=== PATIENT | male | born 1935 | race Caucasian/White ===

== ENCOUNTER 2016-12-29 11:13 | Inpatient (IN) | payer OTHER ==
--- NOTE | 2016-12-29 12:24 | PDOC ---
Attending Attestation - Resident Resident Name: Junito Jimenez - ED Attending Attestation I have performed the following: I have examined & evaluated the patient, The case was reviewed & discussed with the resident, I agree w/resident's findings & plan - HPI HPI: 12/29/16 12:43 81-year-old male, started with severe herpetic lesion in his R upper lip and face, which he said was severe, and also a rash on the back of his neck radiating to the right shoulder week ago He states that he scratched at the herpetic lesions on his face Since then he's had progressive facial redness pain and swelling since then, but denies any fevers or chills He was sent from his doctor's office today for further evaluation - Physicial Exam PE: 12/29/16 12:44 Physical exam Last Vital Signs Temp Pulse Resp BP Pulse Ox 99.1 F 106 H 16 144/78 96 12/29/16 11:21 12/29/16 12:14 12/29/16 12:14 12/29/16 12:14 12/29/16 12:14 There are herpetic lesions on the face, with excoriations and some scabbing over secondary to the patient scratching at them There is facial cellulitis extending to the lower eyelid, but no obvious septal cellulitis Extraocular movements are intact On the posterior neck there are zoster looking lesions in the right neck into the right shoulder There is no evidence of [place] Knutson syndrome heart regular lungs clear - Medical Decision Making 12/29/16 12:46 Concerned about herpes zoster and/or herpes simplex, with secondary staph infection/facial cellulitis from scratching at the areas Will panculture and check labwork Will start coverage with acyclovir, vancomycin and Unasyn Case was discussed immediately with Dr. Jasso-infectious disease 12/29/16 13:51 Laboratory Results - last 24 hr 12/29/16 12/29/16 12:30 12:30 WBC 4.5 D RBC 3.96 L Hgb 11.5 L Hct 35.0 L MCV 88.2 MCHC 32.9 RDW 13.5 Plt Count 160 MPV 8.5 D Neutrophils % 67.0 Lymphocytes % 15.1 Monocytes % 15.7 H Eosinophils % 1.1 Basophils % 1.1 Sodium Cancelled Potassium Cancelled Chloride Cancelled Carbon Dioxide Cancelled Anion Gap Cancelled BUN Cancelled Creatinine Cancelled Creat Clearance w eGFR Cancelled Random Glucose Cancelled Calcium Cancelled Total Bilirubin Cancelled AST Cancelled ALT Cancelled Alkaline Phosphatase Cancelled Total Protein Cancelled Albumin Cancelled Chemistries hemolyzed, still do not have BUN and creatinine Need to redraw everything Treat with IV Acyclovir, vancomycin and unasyn 12/29/16 15:19 Acyclovir started GFR 40, creatinine 1.6, unable to give IV contrast for CAT scan Will order CAT scan without IV contrast 12/29/16 16:[address] Alan - will admit 12/29/16 16:33 Lactic acid 2.2-patient being hydrated 12/29/16 17:00 CT scan still pending at the time of admission (CT scan without) ADMITTING Case discussed in detail with admitting physician including history, physical exam and ancillary studies. Admitting physician has assumed care for the patient, will follow all pending diagnostics and will complete the evaluation and treatment. 12/29/16 17:21 CT scan as read by me Large amount of soft tissue swelling, CT scan is done without IV contrast, no definite acute collection is seen pre-septal swelling seen Laboratory Results - last 24 hr 12/29/16 12/29/16 12/29/16 12:30 12:30 12:30 WBC 4.5 D RBC 3.96 L Hgb 11.5 L Hct 35.0 L MCV 88.2 MCHC 32.9 RDW 13.5 Plt Count 160 MPV 8.5 D Neutrophils % 67.0 Lymphocytes % 15.1 Monocytes % 15.7 H Eosinophils % 1.1 Basophils % 1.1 Sodium Cancelled Potassium Cancelled Chloride Cancelled Carbon Dioxide Cancelled Anion Gap Cancelled BUN Cancelled Creatinine Cancelled Creat Clearance w eGFR Cancelled Random Glucose Cancelled Lactic Acid 2.215 H* Calcium Cancelled Total Bilirubin Cancelled AST Cancelled ALT Cancelled Alkaline Phosphatase Cancelled Total Protein Cancelled Albumin Cancelled 12/29/16 14:00 WBC RBC Hgb Hct MCV MCHC RDW Plt Count MPV Neutrophils % Lymphocytes % Monocytes % Eosinophils % Basophils % Sodium 141 Potassium 5.4 H Chloride 107 Carbon Dioxide 27 Anion Gap 7 L BUN 32 H Creatinine 1.6 H Creat Clearance w eGFR 41.69 Random Glucose 93 Lactic Acid Calcium 8.3 L Total Bilirubin 0.5 AST 18 ALT 20 Alkaline Phosphatase 82 Total Protein 7.0 Albumin 3.7 12/29/16 21:27 Addendum - CT reading by radiology EXAM#: TYPE/EXAM: RESULT: [id number] CT/FACIAL BONES CT W/O CONTRAST Facial cellulitis CT scan of the facial bones/neck without intravenous contrast. A noncontrast CT scan of the neck was performed with axial images obtained from the midbrain down to the thoracic inlet. Coronal and sagittal reconstruction images were obtained. There is moderate right periorbital and preseptal soft tissue swelling extending down to the right cheek and along lateral aspect of the right face with subcutaneous edema. Both orbits appear intact. No gross fracture is identified. Minimal mucosal thickening in the ethmoid air cells and maxillary antra with an approximately 1 cm retention cyst versus polyp in the left maxillary antrum , laterally. Both TM joints are intact. Prominent anterior osteophytes from C2 down to T2 level with fusion on the right. There is also suggestion of fusion of C4-C6 vertebral bodies on the right. No jumped facets are identified. No prevertebral soft tissue swelling is seen. No enlarged lymph nodes are identified. There is a 1.1 cm heterogeneous calcific density seen along the inferior margin of the right parotid gland that may represent a calcified lymph node. The airway is patent and symmetric without gross narrowing Lung windows at the thoracic inlet appear unremarkable IMPRESSION: See discussion above Moderate right periorbital and preseptal soft tissue swelling extending superiorly to the right orbital rim and inferiorly over the right cheek and lateral aspect of the face without evidence of fluid collection/abscess. Both orbits are intact. Both eye globes are intact without evidence of retrobulbar abnormal attenuation. Reported By: Abhilash Mcclellan MD 12/29/16 1333 Discharge Disposition - Diagnosis Facial cellulitis, Herpes Zoster Qualifiers: Herpes zoster complications: unspecified herpes zoster complication Qualified Code(s): B02.8 - Zoster with other complications - Discharge Dispostion Last Admission D/C Date: 05/15/10 Admit: Yes
[2016-12-29] MEDS ORDERED: SODIUM CHLORIDE 1,000 ML IV STA ×2 (12:32→15:34)
--- NOTE | 2016-12-29 12:39 | PDOC ---
History of Present Illness - General Chief Complaint: Edema Stated Complaint: FACE INJURY, PCP SENT Time Seen by Provider: 12/29/16 12:21 History Source: Patient Exam Limitations: No Limitations - History of Present Illness Initial Comments: 12/29/16 12:39 81 yo M with significant pmhx of HTN presents with one week history of worsening facial swelling. He states that one week prior he has the "worst cold sore" of his life. That then went away and he developed vesicles on his face which he popped. Then face began to lizzy and swell. As well as the face a dermatomal rash developed on his neck. He went to see primary doc and was given script for antiviral and antibiotics but when his symptoms worsened was told to come to ED.No history of shingles vaccine. He is now complaining of facial pain and swelling that is constant. No loss of vision or pain with movement of eyes. Hearing is intact. Denies fevers, chills, MEDRANO, CP, SOB, or palpitations. Timing/Duration: 1 week Past History - Travel Traveled outside of the country in the last 30 days: No Close contact w/someone who was outside of country & ill: No - Past Medical History Allergies/Adverse Reactions: Allergies Allergy/AdvReac Type Severity Reaction Status Date / Time No Known Allergies Allergy Verified 12/29/16 11:25 Home Medications: Ambulatory Orders Amlodipine Besylate 5 mg PO DAILY 12/29/16 Cephalexin [Keflex] 500 mg PO TID 12/29/16 Furosemide [Lasix -] 40 mg PO DAILY 12/29/16 Losartan Potassium 100 mg PO DAILY 12/29/16 Potassium Chloride [K-Tab ER] 10 meq PO DAILY 12/29/16 Tamsulosin HCl [Flomax] 0.4 mg PO DAILY 12/29/16 Valacyclovir HCl [Valtrex] 1,000 mg PO TID 12/29/16 HTN: Yes - Psycho/Social/Smoking Cessation Hx Suicidal Ideation: No Smoking History: Former smoker Have you smoked in the past 12 months: No Information on smoking cessation initiated: No Review of Systems - Review of Systems Able to Perform ROS?: Yes Is the patient limited Kazakh proficient: No *Physical Exam - Vital Signs Last Vital Signs Temp Pulse Resp BP Pulse Ox 99.1 F 106 H 16 144/78 96 12/29/16 11:21 12/29/16 12:14 12/29/16 12:14 12/29/16 12:14 12/29/16 12:14 ED Treatment Course - LABORATORY CBC & Chemistry Diagram: 12/29/16 12:30 12/29/16 14:00 - RADIOLOGY Radiology Studies Ordered: Category Date Time Status FACIAL BONES CT WITH CONTRAST [CT] Stat CT Scan 12/29/16 12:31 Ordered Medical Decision Making - Medical Decision Making 12/29/16 12:45 A:81 yo M with significant pmhx of HTN presents with one week history of worsening facial swelling. Most likely herpetic with secondary cellulitis. P: * WIll send CBC, CMP, UA, Lactic acid, blood cultures. * Will get facial soft tissue CT r/o abscess * WIll start coverage with Acyclovir, Vanco and Zosyn. * ID - Dr. Jasso consulted. *DC/Admit/Observation/Transfer Diagnosis at time of Disposition: Facial cellulitis, Herpes Addendum entered and electronically signed by Junito Jimenez RES 12/31/16 11: 13: Physical Exam Vital Sings: Vital Signs Temperature 98.1 F 12/31/16 08:20 Pulse Rate 84 12/31/16 08:20 Respiratory Rate 19 12/31/16 08:20 Blood Pressure 150/91 12/31/16 08:20 O2 Sat by Pulse Oximetry (%) 97 12/30/16 09:00 Constitutional: Yes: Calm Eyes: Yes: EOM Intact, PERRL (facial cellulits of right side of face and eyelid) HENT: Yes: Atraumatic, Normocephalic Neck: Yes: Other (vesicular rash seen on posterior right neck in dermatomal pattern ) Cardiovascular: Yes: Regular Rate and Rhythm. No: JVD, Murmur Respiratory: Yes: Regular, CTA Bilaterally Gastrointestinal: Yes: Normal Bowel Sounds, Soft. No: Tenderness Extremities: No: Calf Tenderness Peripheral Pulses WNL: Yes Integumentary: Yes: Rash (vesicular rash seen on posterior right night. ) Neurological: Yes: Alert, Oriented, Cran Nerves II-XII Intact Psychiatric: Yes: Alert, Oriented Labs: CBC, BMP 12/29/16 12:30 12/29/16 14:00
[2016-12-29 13:03] LABS: BASOPHIL 1.1 % (0-2.0); EOSINOPHIL 1.1 % (0-4.5); MCHC 32.9 g/dl (32.0-35.9); MEAN CELL VOLUME 88.2 fl (80-96); MEAN PLT VOLUME 8.5 fl (7.5-11.1); PLATELET COUNT 160 K/MM3 (134-434); RDW 13.5 % (11.9-15.9); WHITE BLOOD COUNT 4.5 K/mm3 (4.0-10.0)
[2016-12-29] MEDS ORDERED: ACETAMINOPHEN 500 MG TABLET (FP) PO ONE (14:35)
[2016-12-29 14:45] LABS: ALBUMIN 3.7 g/dl (3.4-5.0); CALCIUM 8.3 mg/dL (8.5-10.1)
[2016-12-29 14:48] LABS: BILIRUBIN,TOTAL 0.5 mg/dL (0.2-1.0); COCKROFT - GAULT 49.94; CREATININE 1.6 mg/dL (0.7-1.3)
[2016-12-29] MEDS ORDERED: ACYCLOVIR INJECTION 1,000 MG in DEXTROSE 5%-WATER - 100 ML IVPB ONE (14:57)
[2016-12-29] MEDS ORDERED: ACYCLOVIR INJECTION 1,000 MG in DEXTROSE 5%-WATER - 250 ML IVPB ONE (15:30)
[2016-12-29] MEDS ORDERED: AMPICILLIN NA/SULBACTAM NA 3 GM in SODIUM CHLORIDE 100 ML IVPB ONE (15:53)
[2016-12-29] MEDS ORDERED: VANCOMYCIN 1,250 MG in DEXTROSE 5%-WATER - 250 ML IVPB ONE (15:53)
[2016-12-29] MEDS ORDERED: VANCOMYCIN 1 GRAM (PRE-DOCKED) 250 ML IVPB ONE (16:13)
[2016-12-29 18:35] VITALS: BMI 35.0
[2016-12-30] MEDS: CLINDAMYCIN 300 MG PREMIX IVPB 50 ML IVPB SCH ×3 (01:53→17:10)
[2016-12-30] MEDS: ACYCLOVIR INJECTION 500 MG in DEXTROSE 5%-WATER - 100 ML IVPB SCH ×3 (01:54→17:11)
[2016-12-30] MEDS: AMPICILLIN NA/SULBACTAM NA 3 GM in SODIUM CHLORIDE 100 ML IVPB SCH ×3 (01:54→17:11)
[2016-12-30] MEDS ORDERED: SODIUM CHLORIDE 0.45% 1,000 ML IV SCH (02:00)
[2016-12-30 08:22] LABS: BASOPHIL 1.1 % (0-2.0); EOSINOPHIL 1.7 % (0-4.5); MCH 28.8 pg (25.7-33.7); MCHC 32.9 g/dl (32.0-35.9); MEAN CELL VOLUME 87.6 fl (80-96); MEAN PLT VOLUME 7.8 fl (7.5-11.1); NEUTROPHILS 58.5 % (42.8-82.8); PLATELET COUNT 137 K/MM3 (134-434); RDW 13.3 % (11.9-15.9); WHITE BLOOD COUNT 3.6 K/mm3 (4.0-10.0)
--- NOTE | 2016-12-30 08:57 | HP ---
Admitting History and Physical - Primary Care Physician PCP: Tereza Sal - Admission Chief Complaint: facial rash/swelling History of Present Illness: developed cold sore over his upper lip 6 weeks ago, went away, but one to two weeks ago developed blisters over his face, he tried to squeeze them, redness developed -started keflex and valtrex on Wednesday, but did not improve so he was sent to er. History Source: Patient Limitations to Obtaining History: No Limitations - Past Medical History Cardiovascular: Yes: HTN - Past Surgical History Past Surgical History: Yes: Cataract Removal (bilateral), Joint Replacement ( left hip replacement bilateral knee replacement) - Smoking History Smoking history: Former smoker Have you smoked in the past 12 months: No If you are a former smoker, when did you quit?: 11 YRS AGO - Alcohol/Substance Use Hx Alcohol Use: No - Social History ADL: Independent Home Medications - Allergies Allergies/Adverse Reactions: Allergies Allergy/AdvReac Type Severity Reaction Status Date / Time No Known Allergies Allergy Verified 12/29/16 11:25 - Home Medications Home Medications: Ambulatory Orders Amlodipine Besylate 5 mg PO DAILY 12/29/16 Cephalexin [Keflex] 500 mg PO TID 12/29/16 Furosemide [Lasix -] 40 mg PO DAILY 12/29/16 Losartan Potassium 100 mg PO DAILY 12/29/16 Potassium Chloride [K-Tab ER] 10 meq PO DAILY 12/29/16 Tamsulosin HCl [Flomax] 0.4 mg PO DAILY 12/29/16 Valacyclovir HCl [Valtrex] 1,000 mg PO TID 12/29/16 Family Disease History - Family Disease History Family History: Unremarkable Review of Systems - Review of Systems Constitutional: denies: Chills, Diaphoresis, Fever, Lethargy Eyes: reports: No Symptoms HENT: reports: No Symptoms Neck: reports: No Symptoms Cardiovascular: reports: No Symptoms Respiratory: reports: No Symptoms Gastrointestinal: reports: No Symptoms Genitourinary: reports: No Symptoms Physical Examination Vital Signs: Vital Signs Temperature 97.9 F 12/30/16 06:00 Pulse Rate 99 H 12/30/16 06:00 Respiratory Rate 18 12/30/16 06:00 Blood Pressure 145/72 12/30/16 06:00 O2 Sat by Pulse Oximetry (%) 97 12/29/16 21:00 Constitutional: Yes: No Distress, Calm Eyes: Yes: Conjunctiva Clear HENT: Yes: Atraumatic, Normocephalic Neck: Yes: Supple, Trachea Midline Cardiovascular: Yes: Regular Rate and Rhythm Respiratory: Yes: CTA Bilaterally Gastrointestinal: Yes: Normal Bowel Sounds, Soft Edema: LLE: Trace, RLE: Trace Peripheral Pulses WNL: Yes Integumentary: Yes: Other (vesicular rash over right posterior cervical and deltoid area with surroounding erythema shallow ulcers over right face over maxilla and significant lower eyelid swelling) ...Motor Strength: WNL Psychiatric: Yes: WNL Labs: CBC, BMP 12/30/16 07:50 Laboratory Results - last 24 hr 12/29/16 12/29/16 12/29/16 12:30 12:30 12:30 WBC 4.5 D RBC 3.96 L Hgb 11.5 L Hct 35.0 L MCV 88.2 MCHC 32.9 RDW 13.5 Plt Count 160 MPV 8.5 D Neutrophils % 67.0 Lymphocytes % 15.1 Monocytes % 15.7 H Eosinophils % 1.1 Basophils % 1.1 Sodium Cancelled Potassium Cancelled Chloride Cancelled Carbon Dioxide Cancelled Anion Gap Cancelled BUN Cancelled Creatinine Cancelled Creat Clearance w eGFR Cancelled Random Glucose Cancelled Lactic Acid 2.215 H* Calcium Cancelled Total Bilirubin Cancelled AST Cancelled ALT Cancelled Alkaline Phosphatase Cancelled Total Protein Cancelled Albumin Cancelled 12/29/16 12/30/16 14:00 07:50 WBC 3.6 L RBC 3.59 L Hgb 10.3 L D Hct 31.4 L MCV 87.6 MCHC 32.9 RDW 13.3 Plt Count 137 MPV 7.8 Neutrophils % 58.5 Lymphocytes % 19.8 D Monocytes % 18.9 H Eosinophils % 1.7 Basophils % 1.1 Sodium 141 Potassium 5.4 H Chloride 107 Carbon Dioxide 27 Anion Gap 7 L BUN 32 H Creatinine 1.6 H Creat Clearance w eGFR 41.69 Random Glucose 93 Lactic Acid Calcium 8.3 L Total Bilirubin 0.5 AST 18 ALT 20 Alkaline Phosphatase 82 Total Protein 7.0 Albumin 3.7 Imaging - Results Cat Scan: Report Reviewed Problem List - Problems (1) Facial cellulitis Code(s): L03.211 - CELLULITIS OF FACE (2) Zoster Code(s): B02.9 - ZOSTER WITHOUT COMPLICATIONS Qualifiers: Herpes zoster complications: unspecified herpes zoster complication Qualified Code(s): B02.8 - Zoster with other complications (3) Hypertension Code(s): I10 - ESSENTIAL (PRIMARY) HYPERTENSION Qualifiers: Hypertension type: essential hypertension Qualified Code(s): I10 - Essential (primary) hypertension Assessment/Plan iv abx, iv antiviral ID f/up requested also will request ophthalmology eval r/o ocular involvement
[2016-12-30 08:58] LABS: ALBUMIN 3.5 g/dl (3.4-5.0); CALCIUM 8.5 mg/dL (8.5-10.1)
[2016-12-30 09:02] LABS: BILIRUBIN,TOTAL 0.6 mg/dL (0.2-1.0); CREATININE 1.3 mg/dL (0.7-1.3); TOT PROT 6.9 g/dl (6.4-8.2)
[2016-12-30] MEDS ORDERED: PT OWN MED DRAWER 7, Y5N ONE ×2 (10:41→17:04)
[2016-12-30] MEDS: TAMSULOSIN HCL 0.4 MG CAP.ER.24H (FP) PO SCH (10:44)
[2016-12-30] MEDS: amLODIPine BESYLATE 5 MG TABLET (FP) PO SCH (10:45)
[2016-12-30] MEDS: POTASSIUM CHLORIDE TABS 10 MEQ TABLET.ER (FP) PO SCH (10:45)
[2016-12-30] MEDS: ENOXAPARIN NA (PORCINE) 40 MG/0.4 ML DISP.SYRIN SQ SCH ×2 (10:45→10:54)
[2016-12-30] MEDS: FUROSEMIDE 40 MG TABLET (FP) PO SCH (10:45)
[2016-12-30] MEDS: LOSARTAN POTASSIUM 50 MG TABLET (FP) PO SCH (10:45)
--- NOTE | 2016-12-30 10:58 | CONSULT ---
Consult Consult Specialty:: infectious diseases Reason for Consultation:: facial swelling - History of Present Illness Chief Complaint: pain and swelling over the rt side of the face with herpes zoster and extending to the nape of the neck at back History of Present Illness: 81 yo M with significant pmhx of HTN presents with one week history of worsening facial swelling. patient had cold sore prior to this coming on which went away and then after a week or so the swelling of the face started He developed vesicle on the face which he popped . patient then found spread of the vesicles also of not on examining the patient it appears the eye to be red and there is crusting on the nose patients feels that he is starting to get better as his lip swelling has gone down - History Source History Provided By: Patient Limitations to Obtaining History: No Limitations - Past Medical History Cardio/Vascular: Yes: HTN - Past Surgical History Past Surgical History: Yes: Cataract Removal (bilateral), Joint Replacement ( left hip replacement bilateral knee replacement) - Alcohol/Substance Use Hx Alcohol Use: No - Smoking History Smoking history: Former smoker Have you smoked in the past 12 months: No If you are a former smoker, when did you quit?: 11 YRS AGO - Social History ADL: Independent Home Medications - Allergies Allergies/Adverse Reactions: Allergies Allergy/AdvReac Type Severity Reaction Status Date / Time No Known Allergies Allergy Verified 12/29/16 11:25 - Home Medications Home Medications: Ambulatory Orders Amlodipine Besylate 5 mg PO DAILY 12/29/16 Cephalexin [Keflex] 500 mg PO TID 12/29/16 Furosemide [Lasix -] 40 mg PO DAILY 12/29/16 Losartan Potassium 100 mg PO DAILY 12/29/16 Potassium Chloride [K-Tab ER] 10 meq PO DAILY 12/29/16 Tamsulosin HCl [Flomax] 0.4 mg PO DAILY 12/29/16 Valacyclovir HCl [Valtrex] 1,000 mg PO TID 12/29/16 Review of Systems - Review of Systems Constitutional: reports: No Symptoms Eyes: reports: Other (redness) HENT: reports: Other (swelling erythema of the face) Neck: reports: Other (herpes on the neck extending posteriorly and crossing midline) Cardiovascular: reports: No Symptoms Respiratory: reports: No Symptoms Gastrointestinal: reports: No Symptoms Genitourinary: reports: No Symptoms Musculoskeletal: reports: No Symptoms Integumentary: reports: Change in Color, Rash Neurological: reports: No Symptoms Endocrine: reports: No Symptoms Hematology/Lymphatic: reports: No Symptoms Psychiatric: reports: No Symptoms Physical Exam Vital Signs: Vital Signs Temperature 97.9 F 12/30/16 06:00 Pulse Rate 99 H 12/30/16 06:00 Respiratory Rate 18 12/30/16 06:00 Blood Pressure 145/72 12/30/16 06:00 O2 Sat by Pulse Oximetry (%) 97 12/29/16 21:00 Constitutional: Yes: Well Nourished, Mild Distress Eyes: Yes: Tearing, Other HENT: Yes: Atraumatic, Normocephalic, Other (patient has herpetic rash on the neck) Neck: Yes: Supple, Other Cardiovascular: Yes: S1, S2 Respiratory: Yes: Regular, CTA Bilaterally Gastrointestinal: Yes: Normal Bowel Sounds, Soft Musculoskeletal: Yes: WNL, Other Extremities: Yes: WNL Integumentary: Yes: Rash, Other Neurological: Yes: Alert, Oriented Psychiatric: Yes: Alert, Oriented Labs: CBC, BMP 12/30/16 07:50 12/30/16 07:50 Imaging - Results Cat Scan: Report Reviewed, Image Reviewed Assessment/Plan - Problems (1) Facial cellulitis Code(s): L03.211 - CELLULITIS OF FACE (2) Zoster Code(s): B02.9 - ZOSTER WITHOUT COMPLICATIONS Qualifiers: Herpes zoster complications: unspecified herpes zoster complication Qualified Code(s): B02.8 - Zoster with other complications (3) Hypertension Code(s): I10 - ESSENTIAL (PRIMARY) HYPERTENSION Qualifiers: Hypertension type: essential hypertension Qualified Code(s): I10 - Essential (primary) hypertension plan patient started on iv abx on iv acylovir opthalm evaluation close monitoring of renal functions
[2016-12-30] MEDS: SODIUM CHLORIDE 1,000 ML IV SCH (13:00)
[2016-12-31] MEDS ORDERED: PT OWN MED DRAWER 7, Y5N ONE ×4 (01:10→21:02)
[2016-12-31] MEDS: CLINDAMYCIN 300 MG PREMIX IVPB 50 ML IVPB SCH ×3 (01:29→17:06)
[2016-12-31] MEDS: AMPICILLIN NA/SULBACTAM NA 3 GM in SODIUM CHLORIDE 100 ML IVPB SCH ×3 (02:20→17:25)
[2016-12-31] MEDS: ACYCLOVIR INJECTION 500 MG in DEXTROSE 5%-WATER - 100 ML IVPB SCH ×3 (02:59→18:25)
[2016-12-31] MEDS: ACETAMINOPHEN 325 MG TABLET (FP) PO PRN (05:40)
[2016-12-31 07:56] LABS: EOSINOPHIL 2.6 % (0-4.5); MCH 29.2 pg (25.7-33.7); MCHC 33.4 g/dl (32.0-35.9); MEAN CELL VOLUME 87.4 fl (80-96); MEAN PLT VOLUME 8.1 fl (7.5-11.1); NEUTROPHILS 50.6 % (42.8-82.8); PLATELET COUNT 127 K/MM3 (134-434); RDW 13.6 % (11.9-15.9); WHITE BLOOD COUNT 4.1 K/mm3 (4.0-10.0)
[2016-12-31 08:37] LABS: ALBUMIN 3.4 g/dl (3.4-5.0); BILIRUBIN,TOTAL 0.5 mg/dL (0.2-1.0); CALCIUM 8.4 mg/dL (8.5-10.1); COCKROFT - GAULT 57.6; CREATININE 1.4 mg/dL (0.7-1.3); TOT PROT 6.6 g/dl (6.4-8.2)
[2016-12-31] MEDS: TAMSULOSIN HCL 0.4 MG CAP.ER.24H (FP) PO SCH (08:41)
--- NOTE | 2016-12-31 08:41 | CONSULT ---
Consult - text type - Consultation Consultation Note: Ophthalmology consult: 81 year old male admitted with right facial swelling and rash x 2 weeks. He reports slight redness od and irritation of right lower lid, vision a bit blurry OD. PMH: HTN POCH: s/p ce/pciol ou (Dr. Caceres), diplopia resolved with prism glasses Meds: amlodipine, lasix, losartan potassium, flomax, keflex, valtrex All: NKDA Social: former smoker FOCHx: non-contribuory gtts: none [facility] with readers near vision: 20/30 od , 20/25 os. TA 16 OU, Rotations full, p miotic, no apd, no proptosis, no decreased v1 sensation ou PLE: lll vescicles and erythema right lower lid temporally and nasally OD, 2+ edema and 2+ erythema right maxillary region with vesicles and ulcerated lesions sc 1+ injection temporal od, k clear ou , ac formed ou, I wnl ou, L pciol OU DFE: c:d 0.4 m/v/p wnl, pvd ou Impression: Herpes Zoster V2 distribution, but involving right lower lid. No intraocular involvement/ No V1 involvement. Would continue management with keflex and valtrex and add bacitracin opthalmic ointment to right lower lid QID and may also place on right facial lesions. Artificial tears 1 drop od BID F/u with Dr. Vince Caceres as outpatient in 1 week Thank You for this conult Roseline Love MD
[2016-12-31] MEDS: LOSARTAN POTASSIUM 50 MG TABLET (FP) PO SCH (09:15)
[2016-12-31] MEDS: POTASSIUM CHLORIDE TABS 10 MEQ TABLET.ER (FP) PO SCH (09:16)
[2016-12-31] MEDS: FUROSEMIDE 40 MG TABLET (FP) PO SCH (09:16)
[2016-12-31] MEDS: amLODIPine BESYLATE 5 MG TABLET (FP) PO SCH (09:17)
[2016-12-31] MEDS: ENOXAPARIN NA (PORCINE) 40 MG/0.4 ML DISP.SYRIN SQ SCH (09:17)
--- NOTE | 2016-12-31 10:38 | PN ---
Progress Note (short form) - Note Progress Note: overall better, no new complains CBC, BMP 12/31/16 06:30 12/31/16 06:30 Vital Signs Period Temp Pulse Resp BP Sys/Magana Pulse Ox Last 24 Hr 98.1 F-99.3 F 84-98 16-20 150-156/85-91 S1S2 RRR Lungs cta +chronic edema facial erythema better, less swelling around eye shingles lesions slightly better. Imp facial cellulitis over zoster infection Plan iv antiviral and antibiotic as per ID dc planning once cleared by Problem List - Problems (1) Facial cellulitis Code(s): L03.211 - CELLULITIS OF FACE (2) Zoster Code(s): B02.9 - ZOSTER WITHOUT COMPLICATIONS Qualifiers: Herpes zoster complications: unspecified herpes zoster complication Qualified Code(s): B02.8 - Zoster with other complications (3) Hypertension Code(s): I10 - ESSENTIAL (PRIMARY) HYPERTENSION Qualifiers: Hypertension type: essential hypertension Qualified Code(s): I10 - Essential (primary) hypertension
--- NOTE | 2016-12-31 13:00 | PN ---
Progress Note, Physician History of Present Illness: patient doing well swelling improving vesicles drying up - Current Medication List Current Medications: Active Medications Acetaminophen (Tylenol -) 650 mg PO Q6H PRN PRN Reason: FEVER OR PAIN Last Admin: 12/31/16 05:40 Dose: 650 mg Amlodipine Besylate (Norvasc -) 5 mg PO DAILY [facility] Last Admin: 12/31/16 09:17 Dose: 5 mg Artificial Tears (Artificial Tears) 1 drop OD BID [facility] Bacitracin (Bacitracin Ophthalmic Oint -) 1 applic OD QID [facility] Enoxaparin Sodium (Lovenox -) 40 mg SQ DAILY [facility] Last Admin: 12/31/16 09:17 Dose: 40 mg Furosemide (Lasix -) 40 mg PO DAILY [facility] Last Admin: 12/31/16 09:16 Dose: 40 mg Ampicillin Sodium/Sulbactam (Sodium 3 gm/ Sodium Chloride) 100 mls @ 200 mls/ hr IVPB Q8H-IV [facility] Last Admin: 12/31/16 09:17 Dose: 200 mls/hr Clindamycin Phosphate (Cleocin 300 Mg Premix Ivpb) 50 mls @ 104 mls/hr IVPB Q8H -IV [facility] Last Admin: 12/31/16 09:16 Dose: 104 mls/hr Acyclovir 500 mg/ Dextrose 110 mls @ 110 mls/hr IVPB Q8H-IV [facility] Last Admin: 12/31/16 10:25 Dose: 110 mls/hr Sodium Chloride (Normal Saline -) 1,000 mls @ 50 mls/hr IV ASDIR [facility] Last Admin: 12/30/16 13:00 Dose: 50 mls/hr Losartan Potassium (Cozaar -) 100 mg PO DAILY [facility] Last Admin: 12/31/16 09:15 Dose: 100 mg Potassium Chloride (K-Dur -) 10 meq PO DAILY [facility] Last Admin: 12/31/16 09:16 Dose: 10 meq Tamsulosin HCl (Flomax -) 0.4 mg PO DAILY@0830 [facility] Last Admin: 12/31/16 08:41 Dose: 0.4 mg - Objective Vital Signs: Vital Signs Temperature 98.1 F 12/31/16 08:20 Pulse Rate 84 12/31/16 08:20 Respiratory Rate 19 12/31/16 08:20 Blood Pressure 150/91 12/31/16 08:20 O2 Sat by Pulse Oximetry (%) 97 12/30/16 09:00 Constitutional: Yes: No Distress, Calm Eyes: Yes: Tearing, Other (scabbing starting) Neck: Yes: Supple, Trachea Midline Respiratory: Yes: Regular, CTA Bilaterally Gastrointestinal: Yes: Normal Bowel Sounds, Soft Musculoskeletal: Yes: WNL Extremities: Yes: WNL Integumentary: Yes: Erythema (facial improving) Neurological: Yes: Alert, Oriented Psychiatric: Yes: Alert, Oriented Labs: CBC, BMP 12/31/16 06:30 12/31/16 06:30 Assessment/Plan - Problems (1) Facial cellulitis Code(s): L03.211 - CELLULITIS OF FACE (2) Zoster Code(s): B02.9 - ZOSTER WITHOUT COMPLICATIONS Qualifiers: Herpes zoster complications: unspecified herpes zoster complication Qualified Code(s): B02.8 - Zoster with other complications (3) Hypertension Code(s): I10 - ESSENTIAL (PRIMARY) HYPERTENSION Qualifiers: Hypertension type: essential hypertension Qualified Code(s): I10 - Essential (primary) hypertension evaluated by opthalm plan continue iv abx continue iv acylovir rest ct current mgmt rest as per the primary team
[2016-12-31] MEDS: ARTIFICIAL TEARS (POLYVINYL ALCOHOL 1.4%) OPTH DROPS OD SCH ×2 (13:02→22:02)
[2016-12-31] MEDS: BACITRACIN 3.5 GM OPTHALMIC OINT TUBE OD SCH ×3 (13:21→22:02)
[2016-12-31] MEDS: SODIUM CHLORIDE 1,000 ML IV SCH (18:25)
[2017-01-01] MEDS: CLINDAMYCIN 300 MG PREMIX IVPB 50 ML IVPB SCH ×3 (01:11→17:05)
[2017-01-01] MEDS: AMPICILLIN NA/SULBACTAM NA 3 GM in SODIUM CHLORIDE 100 ML IVPB SCH ×3 (01:55→17:30)
[2017-01-01] MEDS: ACYCLOVIR INJECTION 500 MG in DEXTROSE 5%-WATER - 100 ML IVPB SCH ×3 (02:28→18:31)
[2017-01-01] MEDS: ACETAMINOPHEN 325 MG TABLET (FP) PO PRN ×2 (02:34→17:38)
[2017-01-01] MEDS: TAMSULOSIN HCL 0.4 MG CAP.ER.24H (FP) PO SCH (08:18)
--- NOTE | 2017-01-01 08:38 | PN ---
Progress Note (short form) - Note Progress Note: overall better, no new complains Vital Signs Period Temp Pulse Resp BP Sys/Magana Pulse Ox Last 24 Hr 97.9 F-99.2 F 84-90 20-23 139-176/75-92 S1S2 RRR Lungs cta +chronic edema facial erythema better, less induration shingles lesions slightly better, drying up. Imp facial cellulitis over zoster infection Plan iv antiviral and antibiotic as per ID increase norvasc to 10 mg daily Problem List - Problems (1) Facial cellulitis Code(s): L03.211 - CELLULITIS OF FACE (2) Zoster Code(s): B02.9 - ZOSTER WITHOUT COMPLICATIONS Qualifiers: Herpes zoster complications: unspecified herpes zoster complication Qualified Code(s): B02.8 - Zoster with other complications (3) Hypertension Code(s): I10 - ESSENTIAL (PRIMARY) HYPERTENSION Qualifiers: Hypertension type: essential hypertension Qualified Code(s): I10 - Essential (primary) hypertension
[2017-01-01] MEDS ORDERED: PT OWN MED DRAWER 7, Y5N ONE ×2 (09:03→17:02)
[2017-01-01] MEDS: LOSARTAN POTASSIUM 50 MG TABLET (FP) PO SCH (09:08)
[2017-01-01] MEDS: POTASSIUM CHLORIDE TABS 10 MEQ TABLET.ER (FP) PO SCH (09:08)
[2017-01-01] MEDS: amLODIPine BESYLATE 10 MG TABLET (FP) PO SCH (09:09)
[2017-01-01] MEDS: FUROSEMIDE 40 MG TABLET (FP) PO SCH (09:09)
[2017-01-01] MEDS: ARTIFICIAL TEARS (POLYVINYL ALCOHOL 1.4%) OPTH DROPS OD SCH ×2 (09:09→22:45)
[2017-01-01] MEDS: ENOXAPARIN NA (PORCINE) 40 MG/0.4 ML DISP.SYRIN SQ SCH (09:10)
[2017-01-01] MEDS: BACITRACIN 3.5 GM OPTHALMIC OINT TUBE OD SCH ×4 (09:10→22:45)
--- NOTE | 2017-01-01 13:56 | PN ---
Progress Note, Physician History of Present Illness: patient stable no new events - Current Medication List Current Medications: Active Medications Acetaminophen (Tylenol -) 650 mg PO Q6H PRN PRN Reason: FEVER OR PAIN Last Admin: 01/01/17 02:34 Dose: 650 mg Amlodipine Besylate (Norvasc -) 10 mg PO DAILY [facility] Last Admin: 01/01/17 09:09 Dose: 10 mg Artificial Tears (Artificial Tears) 1 drop OD BID [facility] Last Admin: 01/01/17 09:09 Dose: 1 drop Bacitracin (Bacitracin Ophthalmic Oint -) 1 applic OD QID [facility] Last Admin: 01/01/17 13:30 Dose: 1 applic Enoxaparin Sodium (Lovenox -) 40 mg SQ DAILY [facility] Last Admin: 01/01/17 09:10 Dose: 40 mg Furosemide (Lasix -) 40 mg PO DAILY [facility] Last Admin: 01/01/17 09:09 Dose: 40 mg Ampicillin Sodium/Sulbactam (Sodium 3 gm/ Sodium Chloride) 100 mls @ 200 mls/ hr IVPB Q8H-IV [facility] Last Admin: 01/01/17 09:51 Dose: 200 mls/hr Clindamycin Phosphate (Cleocin 300 Mg Premix Ivpb) 50 mls @ 104 mls/hr IVPB Q8H -IV [facility] Last Admin: 01/01/17 09:09 Dose: 104 mls/hr Acyclovir 500 mg/ Dextrose 110 mls @ 110 mls/hr IVPB Q8H-IV [facility] Last Admin: 01/01/17 10:24 Dose: 110 mls/hr Sodium Chloride (Normal Saline -) 1,000 mls @ 50 mls/hr IV ASDIR [facility] Last Admin: 12/31/16 18:25 Dose: 50 mls/hr Losartan Potassium (Cozaar -) 100 mg PO DAILY [facility] Last Admin: 01/01/17 09:08 Dose: 100 mg Potassium Chloride (K-Dur -) 10 meq PO DAILY [facility] Last Admin: 01/01/17 09:08 Dose: 10 meq Tamsulosin HCl (Flomax -) 0.4 mg PO DAILY@0830 [facility] Last Admin: 01/01/17 08:18 Dose: 0.4 mg - Objective Vital Signs: Vital Signs Temperature 98.1 F 01/01/17 07:55 Pulse Rate 84 01/01/17 07:55 Respiratory Rate 23 01/01/17 07:55 Blood Pressure 176/92 01/01/17 07:55 O2 Sat by Pulse Oximetry (%) 97 12/30/16 09:00 Constitutional: Yes: No Distress, Calm Cardiovascular: Yes: S1, S2 Respiratory: Yes: Regular, CTA Bilaterally Gastrointestinal: Yes: Normal Bowel Sounds, Soft Musculoskeletal: Yes: Other Extremities: Yes: Other Neurological: Yes: Alert, Oriented Psychiatric: Yes: Alert, Oriented Labs: CBC, BMP 12/31/16 06:30 12/31/16 06:30 Assessment/Plan - Problems (1) Facial cellulitis Code(s): L03.211 - CELLULITIS OF FACE (2) Zoster Code(s): B02.9 - ZOSTER WITHOUT COMPLICATIONS Qualifiers: Herpes zoster complications: unspecified herpes zoster complication Qualified Code(s): B02.8 - Zoster with other complications (3) Hypertension Code(s): I10 - ESSENTIAL (PRIMARY) HYPERTENSION Qualifiers: Hypertension type: essential hypertension Qualified Code(s): I10 - Essential (primary) hypertension plan continue iv abx continue iv acylovir rest ct current mgmt rest as per the primary team patient improving
[2017-01-01] MEDS: SODIUM CHLORIDE 1,000 ML IV SCH ×2 (18:30)
[2017-01-02] MEDS ORDERED: PT OWN MED DRAWER 7, Y5N ONE ×3 (01:36→17:14)
[2017-01-02] MEDS: CLINDAMYCIN 300 MG PREMIX IVPB 50 ML IVPB SCH ×3 (01:44→17:23)
[2017-01-02] MEDS: AMPICILLIN NA/SULBACTAM NA 3 GM in SODIUM CHLORIDE 100 ML IVPB SCH ×3 (02:21→17:56)
[2017-01-02] MEDS: ACYCLOVIR INJECTION 500 MG in DEXTROSE 5%-WATER - 100 ML IVPB SCH ×3 (03:11→18:43)
[2017-01-02 07:33] LABS: MCH 29.4 pg (25.7-33.7); MCHC 33.7 g/dl (32.0-35.9); MEAN CELL VOLUME 87.1 fl (80-96); MEAN PLT VOLUME 7.6 fl (7.5-11.1); NEUTROPHILS 58.6 % (42.8-82.8); PLATELET COUNT 138 K/MM3 (134-434); RDW 13.4 % (11.9-15.9)
[2017-01-02 08:12] LABS: ALBUMIN 3.4 g/dl (3.4-5.0); BILIRUBIN,TOTAL 0.4 mg/dL (0.2-1.0); CALCIUM 8.4 mg/dL (8.5-10.1); COCKROFT - GAULT 57.6; CREATININE 1.4 mg/dL (0.7-1.3); TOT PROT 6.8 g/dl (6.4-8.2)
--- NOTE | 2017-01-02 08:12 | PN ---
Progress Note (short form) - Note Progress Note: overall better, no new complains CBC, BMP 01/02/17 07:20 S1S2 RRR Lungs cta +chronic edema facial erythema better, less induration shingles lesions slightly better, drying up. Imp Improving facial cellulitis over zoster infection Plan iv antiviral and antibiotic as per ID dc planning Problem List - Problems (1) Facial cellulitis Code(s): L03.211 - CELLULITIS OF FACE (2) Zoster Code(s): B02.9 - ZOSTER WITHOUT COMPLICATIONS Qualifiers: Herpes zoster complications: unspecified herpes zoster complication Qualified Code(s): B02.8 - Zoster with other complications (3) Hypertension Code(s): I10 - ESSENTIAL (PRIMARY) HYPERTENSION Qualifiers: Hypertension type: essential hypertension Qualified Code(s): I10 - Essential (primary) hypertension
[2017-01-02] MEDS: TAMSULOSIN HCL 0.4 MG CAP.ER.24H (FP) PO SCH (08:44)
[2017-01-02] MEDS: ENOXAPARIN NA (PORCINE) 40 MG/0.4 ML DISP.SYRIN SQ SCH (09:43)
[2017-01-02] MEDS: LOSARTAN POTASSIUM 50 MG TABLET (FP) PO SCH (09:43)
[2017-01-02] MEDS: FUROSEMIDE 40 MG TABLET (FP) PO SCH (09:44)
[2017-01-02] MEDS: POTASSIUM CHLORIDE TABS 10 MEQ TABLET.ER (FP) PO SCH (09:44)
[2017-01-02] MEDS: amLODIPine BESYLATE 10 MG TABLET (FP) PO SCH (09:44)
[2017-01-02] MEDS: BACITRACIN 3.5 GM OPTHALMIC OINT TUBE OD SCH ×4 (09:48→22:18)
[2017-01-02] MEDS: ARTIFICIAL TEARS (POLYVINYL ALCOHOL 1.4%) OPTH DROPS OD SCH ×2 (09:48→22:19)
--- NOTE | 2017-01-02 13:54 | PN ---
Progress Note, Physician History of Present Illness: patient stable no new events redness decreasing still a small patch of redness on nasolabial fold lesions have started to crust - Current Medication List Current Medications: Active Medications Acetaminophen (Tylenol -) 650 mg PO Q6H PRN PRN Reason: FEVER OR PAIN Last Admin: 01/01/17 17:38 Dose: 650 mg Amlodipine Besylate (Norvasc -) 10 mg PO DAILY [facility] Last Admin: 01/02/17 09:44 Dose: 10 mg Artificial Tears (Artificial Tears) 1 drop OD BID [facility] Last Admin: 01/02/17 09:48 Dose: 1 drop Bacitracin (Bacitracin Ophthalmic Oint -) 1 applic OD QID [facility] Last Admin: 01/02/17 09:48 Dose: 1 applic Enoxaparin Sodium (Lovenox -) 40 mg SQ DAILY [facility] Last Admin: 01/02/17 09:43 Dose: Not Given Furosemide (Lasix -) 40 mg PO DAILY [facility] Last Admin: 01/02/17 09:44 Dose: 40 mg Ampicillin Sodium/Sulbactam (Sodium 3 gm/ Sodium Chloride) 100 mls @ 200 mls/ hr IVPB Q8H-IV [facility] Last Admin: 01/02/17 10:34 Dose: 200 mls/hr Clindamycin Phosphate (Cleocin 300 Mg Premix Ivpb) 50 mls @ 104 mls/hr IVPB Q8H -IV [facility] Last Admin: 01/02/17 09:43 Dose: 104 mls/hr Acyclovir 500 mg/ Dextrose 110 mls @ 110 mls/hr IVPB Q8H-IV [facility] Last Admin: 01/02/17 11:35 Dose: 110 mls/hr Sodium Chloride (Normal Saline -) 1,000 mls @ 50 mls/hr IV ASDIR [facility] Last Admin: 01/01/17 18:30 Dose: 50 mls/hr Losartan Potassium (Cozaar -) 100 mg PO DAILY [facility] Last Admin: 01/02/17 09:43 Dose: 100 mg Potassium Chloride (K-Dur -) 10 meq PO DAILY [facility] Last Admin: 01/02/17 09:44 Dose: 10 meq Tamsulosin HCl (Flomax -) 0.4 mg PO DAILY@0830 [facility] Last Admin: 01/02/17 08:44 Dose: 0.4 mg - Objective Vital Signs: Vital Signs Temperature 98.7 F 01/02/17 09:37 Pulse Rate 92 H 01/02/17 09:37 Respiratory Rate 20 01/02/17 09:37 Blood Pressure 152/70 01/02/17 09:37 O2 Sat by Pulse Oximetry (%) 97 12/30/16 09:00 Constitutional: Yes: No Distress, Calm Neck: Yes: Supple Cardiovascular: Yes: Regular Rate and Rhythm Respiratory: Yes: Regular, CTA Bilaterally Gastrointestinal: Yes: Normal Bowel Sounds, Soft Musculoskeletal: Yes: Other Extremities: Yes: Other Integumentary: Yes: Erythema (much better) Neurological: Yes: Alert, Oriented Psychiatric: Yes: Alert, Oriented Labs: CBC, BMP 01/02/17 07:20 01/02/17 07:20 Assessment/Plan - Problems (1) Facial cellulitis Code(s): L03.211 - CELLULITIS OF FACE (2) Zoster Code(s): B02.9 - ZOSTER WITHOUT COMPLICATIONS Qualifiers: Herpes zoster complications: unspecified herpes zoster complication Qualified Code(s): B02.8 - Zoster with other complications (3) Hypertension Code(s): I10 - ESSENTIAL (PRIMARY) HYPERTENSION Qualifiers: Hypertension type: essential hypertension Qualified Code(s): I10 - Essential (primary) hypertension plan continue iv abx continue iv acylovir rest ct current mgmt rest as per the primary team patient improving will change to oral tomorrow if patient continues to same path
[2017-01-02] MEDS: SODIUM CHLORIDE 1,000 ML IV SCH (18:43)
[2017-01-02] MEDS: ACETAMINOPHEN 325 MG TABLET (FP) PO PRN (18:45)
[2017-01-03] MEDS ORDERED: PT OWN MED DRAWER 7, Y5N ONE ×2 (01:49→02:00)
[2017-01-03] MEDS: CLINDAMYCIN 300 MG PREMIX IVPB 50 ML IVPB SCH ×2 (01:53→10:42)
[2017-01-03] MEDS: AMPICILLIN NA/SULBACTAM NA 3 GM in SODIUM CHLORIDE 100 ML IVPB SCH ×2 (01:53→10:43)
[2017-01-03] MEDS: ACYCLOVIR INJECTION 500 MG in DEXTROSE 5%-WATER - 100 ML IVPB SCH ×2 (02:02→10:42)
--- NOTE | 2017-01-03 10:24 | PN ---
Progress Note (short form) - Note Progress Note: feels well Vital Signs Period Temp Pulse Resp BP Sys/Magana Pulse Ox Last 24 Hr 98.4 F-99.2 F 80-90 16-20 137-184/70-92 98 S1S2 RRR Lungs cta +chronic edema facial erythema better, less induration shingles lesions drying up. Imp Improving facial cellulitis over zoster infection dc planning today Problem List - Problems (1) Facial cellulitis Code(s): L03.211 - CELLULITIS OF FACE (2) Zoster Code(s): B02.9 - ZOSTER WITHOUT COMPLICATIONS Qualifiers: Herpes zoster complications: unspecified herpes zoster complication Qualified Code(s): B02.8 - Zoster with other complications (3) Hypertension Code(s): I10 - ESSENTIAL (PRIMARY) HYPERTENSION Qualifiers: Hypertension type: essential hypertension Qualified Code(s): I10 - Essential (primary) hypertension
[2017-01-03] MEDS: ENOXAPARIN NA (PORCINE) 40 MG/0.4 ML DISP.SYRIN SQ SCH ×2 (10:41→10:50)
[2017-01-03] MEDS: amLODIPine BESYLATE 10 MG TABLET (FP) PO SCH (10:42)
[2017-01-03] MEDS: LOSARTAN POTASSIUM 50 MG TABLET (FP) PO SCH (10:42)
[2017-01-03] MEDS: TAMSULOSIN HCL 0.4 MG CAP.ER.24H (FP) PO SCH (10:42)
[2017-01-03] MEDS: POTASSIUM CHLORIDE TABS 10 MEQ TABLET.ER (FP) PO SCH (10:42)
[2017-01-03] MEDS: FUROSEMIDE 40 MG TABLET (FP) PO SCH (10:42)
[2017-01-03] MEDS: BACITRACIN 3.5 GM OPTHALMIC OINT TUBE OD SCH ×2 (10:43→15:32)
[2017-01-03] MEDS: ARTIFICIAL TEARS (POLYVINYL ALCOHOL 1.4%) OPTH DROPS OD SCH (10:43)
[2017-01-03 14:40] VITALS: BP 144/70; PULSE 99; TEMP 98.2
--- NOTE | 2017-01-03 15:08 | PN ---
Progress Note, Physician History of Present Illness: doing well lesions crusted facial swelling minimal - Current Medication List Current Medications: Active Medications Acetaminophen (Tylenol -) 650 mg PO Q6H PRN PRN Reason: FEVER OR PAIN Last Admin: 01/02/17 18:45 Dose: 650 mg Amlodipine Besylate (Norvasc -) 10 mg PO DAILY [facility] Last Admin: 01/03/17 10:42 Dose: 10 mg Artificial Tears (Artificial Tears) 1 drop OD BID [facility] Last Admin: 01/03/17 10:43 Dose: 1 drop Bacitracin (Bacitracin Ophthalmic Oint -) 1 applic OD QID [facility] Last Admin: 01/03/17 10:43 Dose: 1 applic Enoxaparin Sodium (Lovenox -) 40 mg SQ DAILY [facility] Last Admin: 01/03/17 10:50 Dose: Not Given Furosemide (Lasix -) 40 mg PO DAILY [facility] Last Admin: 01/03/17 10:42 Dose: 40 mg Ampicillin Sodium/Sulbactam (Sodium 3 gm/ Sodium Chloride) 100 mls @ 200 mls/ hr IVPB Q8H-IV [facility] Last Admin: 01/03/17 10:43 Dose: 200 mls/hr Clindamycin Phosphate (Cleocin 300 Mg Premix Ivpb) 50 mls @ 104 mls/hr IVPB Q8H -IV [facility] Last Admin: 01/03/17 10:42 Dose: 104 mls/hr Acyclovir 500 mg/ Dextrose 110 mls @ 110 mls/hr IVPB Q8H-IV [facility] Last Admin: 01/03/17 10:42 Dose: 110 mls/hr Sodium Chloride (Normal Saline -) 1,000 mls @ 50 mls/hr IV ASDIR [facility] Last Admin: 01/02/17 18:43 Dose: 50 mls/hr Losartan Potassium (Cozaar -) 100 mg PO DAILY [facility] Last Admin: 01/03/17 10:42 Dose: 100 mg Potassium Chloride (K-Dur -) 10 meq PO DAILY [facility] Last Admin: 01/03/17 10:42 Dose: 10 meq Tamsulosin HCl (Flomax -) 0.4 mg PO DAILY@0830 [facility] Last Admin: 01/03/17 10:42 Dose: 0.4 mg - Objective Vital Signs: Vital Signs Temperature 98.2 F 01/03/17 14:39 Pulse Rate 99 H 01/03/17 14:39 Respiratory Rate 18 01/03/17 14:39 Blood Pressure 144/70 01/03/17 14:39 O2 Sat by Pulse Oximetry (%) 98 01/03/17 09:00 Constitutional: Yes: No Distress, Calm Eyes: Yes: Other HENT: Yes: Other Neck: Yes: Supple, Other Cardiovascular: Yes: Regular Rate and Rhythm Respiratory: Yes: Regular, CTA Bilaterally Gastrointestinal: Yes: Normal Bowel Sounds, Soft Musculoskeletal: Yes: WNL Extremities: Yes: WNL Integumentary: Yes: Rash (nearly resolved) Wound/Incision: Yes: Other Neurological: Yes: Alert, Oriented Psychiatric: Yes: Alert, Oriented Labs: CBC, BMP 01/02/17 07:20 01/02/17 07:20 Assessment/Plan - Problems (1) Facial cellulitis Code(s): L03.211 - CELLULITIS OF FACE (2) Zoster Code(s): B02.9 - ZOSTER WITHOUT COMPLICATIONS Qualifiers: Herpes zoster complications: unspecified herpes zoster complication Qualified Code(s): B02.8 - Zoster with other complications (3) Hypertension Code(s): I10 - ESSENTIAL (PRIMARY) HYPERTENSION Qualifiers: Hypertension type: essential hypertension Qualified Code(s): I10 - Essential (primary) hypertension plan acylovir 400mg 3 times a day for another 5 days follow cbc and bmp once clinda 300mg every 8 hourly for 5 days augmentin 500mg bid for 5 days
[2017-01-03] MEDS: SODIUM CHLORIDE 1,000 ML IV SCH (15:30)
--- NOTE | 2017-01-03 15:32 | DS ---
Physical Examination Vital Signs: Vital Signs Temperature 98.2 F 01/03/17 14:39 Pulse Rate 99 H 01/03/17 14:39 Respiratory Rate 18 01/03/17 15:05 Blood Pressure 144/70 01/03/17 14:39 O2 Sat by Pulse Oximetry (%) 98 01/03/17 15:05 Constitutional: Yes: No Distress, Calm Eyes: Yes: EOM Intact HENT: Yes: Normocephalic Neck: Yes: Trachea Midline Cardiovascular: Yes: Regular Rate and Rhythm Respiratory: Yes: CTA Bilaterally Integumentary: Yes: Other (dry, crusted shigles lesions over right nasal fold, maxilla and right posterior cervical area and shoulder. erythema and induration much improved since admission) Labs: CBC, BMP 01/02/17 07:20 01/02/17 07:20 Discharge Summary Reason For Visit: CELLULITIS OF FACE; HERPES SIMPLEX VIRUS INFECTION Current Active Problems Facial cellulitis (Acute) Herpes (Acute) Hypertension (Acute) Zoster (Acute) Hospital Course: admitted for facial cellulitis, that developed over trigeminal zoster. seen by ID seen by ophthalmology-no ocular zoster noted was given iv abx, iv acyclovir with improvement of his symptoms medically stable to nd home with close outpt f/up with medical and also with ophthalmology Condition: Fair - Instructions Diet, Activity, Other Instructions: f/up for CBC and CMP with next week Disposition: HOME - Home Medications Comprehensive Discharge Medication List: Ambulatory Orders Furosemide [Lasix -] 40 mg PO DAILY 12/29/16 Losartan Potassium 100 mg PO DAILY 12/29/16 Potassium Chloride [K-Tab ER] 10 meq PO DAILY 12/29/16 Tamsulosin HCl [Flomax] 0.4 mg PO DAILY 12/29/16 Acyclovir [Zovirax -] 400 mg PO TID #15 tablet 01/03/17 Amlodipine Besylate [Norvasc -] 10 mg PO DAILY tablet 01/03/17 Amoxicillin/Potassium Clav [Augmentin 500-125 Tablet] 1 each PO BID #10 tablet 01/03/17 Bacitracin Ophthalmic Oint - 1 applic OD QID 15 Days 01/03/17 Clindamycin [Cleocin -] 300 mg PO TID #15 capsule 01/03/17
== END 2017-01-03 18:30 | disposition home or self-care (01) | DRG 603 ==
LOC: JER 11:13 → JERBED 16:32 → J8W 20:43
PROVIDERS: ADMIT Internal Medicine; ATTEND Internal Medicine
DX: L03.211 Cellulitis of face (principal); B02.8 Zoster with other complications; I10 Essential (primary) hypertension; Z87.891 Personal history of nicotine dependence
CPT/HCPCS: 36415; 70486-TC; 80053; 83605; 83735; 85025; 87040; 99283-25

== ENCOUNTER 2019-05-20 08:23 | Emergency (ER) | payer OTHER ==
--- NOTE | 2019-05-20 08:36 | PDOC ---
History of Present Illness - General Chief Complaint: Allergic Reaction Stated Complaint: ALLERGIC REACTION TO RX Time Seen by Provider: 05/20/19 08:35 History Source: Patient - History of Present Illness Initial Comments: 05/20/19 08:39 Mr. Baig is an 83 y/o M with hx HSV, HTN p/w two days of hives, lip swelling after taking a single dose of Levofloxacin for a foot infection. He reports being prescribed levaquin 500 mg for an infection on his foot by Dr. Mercedes, who he has a scheduled follow up with on Wednesday. He reports that after taking the first dose on , he developed lower lip swelling as well as raised pruritic lesions on his upper and lower extremities. He reports scratching at these lesions, and reports that they opened and released a small amount of clear fluid. He reports that he has not taken any of the Levaquin since the first dose on due to concerns that he was having a reaction to the medication. He denies any benadryl or other otc antihistamine at home. He reports that his lip swelling as reduced since . He reports being told that he may require IV antibiotics if the levaquin is ineffective. He reports hx lung CA, being treated with Keytruda - reports lung mass originally "size of a potato" down to "a small scar". He denies any shortness of breath, difficulty breathing, fevers, chills, fatigue, night sweats, dysuria, polyuria, cough, confusion, weakness. PCP: Dr. Sal Past History - Past Medical History Allergies/Adverse Reactions: Allergies Allergy/AdvReac Type Severity Reaction Status Date / Time levofloxacin [From Levaquin] Allergy Severe Hives Verified 05/20/19 09:16 Penicillins Allergy Verified 05/20/19 08:32 Home Medications: Ambulatory Orders Furosemide [Lasix -] 40 mg PO DAILY 12/29/16 Losartan Potassium 100 mg PO DAILY 12/29/16 Tamsulosin HCl [Flomax] 0.4 mg PO DAILY 12/29/16 Amlodipine Besylate [Norvasc -] 10 mg PO DAILY tablet 01/03/17 Clindamycin [Cleocin -] 300 mg PO TID 7 Days #21 capsule 05/20/19 Econazole Nitrate 15 gm TP DAILY 05/20/19 Pembrolizumab [Keytruda] 100 mg IV ASDIR 05/20/19 Cancer: (lung nodule taking ktruda) COPD: No HTN: Yes - Surgical History Orthopedic Surgery: Yes (HIP/KNEE SURGERY) - Suicide/Smoking/Psychosocial Hx Smoking History: Never smoked Have you smoked in the past 12 months: No If you are a former smoker, when did you quit?: 11 YRS AGO Hx Alcohol Use: No Drug/Substance Use Hx: No Hx Substance Use Treatment: No Review of Systems - Review of Systems Able to Perform ROS?: Yes Comments:: 05/20/19 11:35 ROS: GENERAL/CONSTITUTIONAL: No fever or chills. No weakness. HEAD, EYES, EARS, NOSE AND THROAT: Lip swelling. No change in vision. No ear pain or discharge. No sore throat. CARDIOVASCULAR: No chest pain or shortness of breath RESPIRATORY: No cough, wheezing, or hemoptysis. GASTROINTESTINAL: No nausea, vomiting, diarrhea or constipation. GENITOURINARY: No dysuria, frequency, or change in urination. MUSCULOSKELETAL: No other joint or muscle swelling or pain. No neck or back pain. SKIN: Arm, leg lesions, pruritic. NEUROLOGIC: No headache, vertigo, loss of consciousness, or change in strength/ sensation. ENDOCRINE: No increased thirst. No abnormal weight change HEMATOLOGIC/LYMPHATIC: No anemia, easy bleeding, or history of blood clots. ALLERGIC/IMMUNOLOGIC: Skin allergy, excoriated hives. *Physical Exam - Vital Signs Last Vital Signs Temp Pulse Resp BP Pulse Ox 98.4 F 116 H 20 174/84 H 99 05/20/19 08:28 05/20/19 08:28 05/20/19 08:28 05/20/19 08:28 05/20/19 08:28 - Physical Exam Comments: 05/20/19 11:38 PE: GENERAL: Awake, alert, and fully oriented, in no acute distress HEAD: No signs of trauma, normocephalic, atraumatic EYES: PERRLA, EOMI, sclera anicteric, conjunctiva clear ENT: Auricles normal inspection, hearing grossly normal, nares patent, oropharynx clear without exudates. Moist mucosa NECK: Normal ROM, supple, no lymphadenopathy, JVD, or masses LUNGS: No distress, speaks full sentences, clear to auscultation bilaterally HEART: Regular rate and rhythm, normal S1 and S2, no murmurs, rubs or gallops, peripheral pulses normal and equal bilaterally. ABDOMEN: Soft, nontender, normoactive bowel sounds. No guarding, no rebound. No masses EXTREMITIES : Excoriated, desquamed hives on arms, legs. Lagest approx 3cm across, overlying redness. Normal range of motion, no edema. No clubbing or cyanosis NEUROLOGICAL: Cranial nerves II through XII grossly intact. Normal speech, normal gait, no focal sensorimotor deficits SKIN: Warm, Dry, normal turgor ED Treatment Course - LABORATORY CBC & Chemistry Diagram: 05/20/19 09:50 05/20/19 09:50 Medical Decision Making - Medical Decision Making 05/20/19 08:40 83 M with hx HTN, HSV p/w Plan: CBC CMP Blood cultures Dispo: Likely admit 05/20/19 09:[address] Sal, per answering service they are unable to take phone calls from [facility], including for consults, and were instructed to refer any phone calls (including consults) to the Hospitalist service. 05/20/19 09:35 Repeat HR - 95 Plan for rectal temp 05/20/19 11:[address] Sal. Plan for discharge home on Clindamycin 300mg TID , d/c levaquin, follow up with Dr. Sal on Wednesday. Plan for repeat vitals, discharge. *DC/Admit/Observation/Transfer Diagnosis at time of Disposition: Cellulitis Qualifiers: Site of cellulitis: unspecified site Qualified Code(s): L03.90 - Cellulitis, unspecified - Discharge Dispostion Disposition: HOME Condition at time of disposition: Stable Decision to Admit order: No - Prescriptions Prescriptions: Clindamycin [Cleocin -] 300 mg PO TID 7 Days #21 capsule - Referrals - Patient Instructions Printed Discharge Instructions: DI for Adverse Drug Reaction -- Allergic Additional Instructions: You were evaluated in the Emergency Department after an allergic reaction. Your blood work returned normal. We discussed the case with Dr. Sal - make sure that you keep your appointment with Dr. Sal on Wednesday, it is important that you follow up with him as scheduled. Please stop taking the Levofloxacin. We are prescribing you a different antibiotic - Clindamycin. Please take it three times a day for 7 days, with Activia yogurt as the medication can cause stomach upset. Please return to the Emergency Department if you develop high fevers, chills, confusion, weakness, severe nausea and vomiting. - Post Discharge Activity
[2019-05-20 08:43] VITALS: BMI 33.9
[2019-05-20 10:19] LABS: BASO % 0.6 % (0-2.0); HEMATOCRIT 33.9 % (35.4-49); HEMOGLOBIN 11.7 GM/dL (11.7-16.9); LYMPH % 10.8 % (8-40); MCH 30.1 pg (25.7-33.7); MCHC 34.5 g/dl (32.0-35.9); MEAN CELL VOLUME 87.3 fl (80-96); MEAN PLT VOLUME 7.8 fl (7.5-11.1); MONO % 9.8 % (3.8-10.2); NEUT % 76.8 % (42.8-82.8); PLATELET COUNT 204 K/MM3 (134-434); RBC 3.89 M/mm3 (4.00-5.60); RDW 13.9 % (11.9-15.9); WHITE BLOOD COUNT 7.3 K/mm3 (4.0-10.0)
[2019-05-20 11:03] LABS: ALBUMIN 3.8 g/dl (3.4-5.0); BILIRUBIN,TOTAL 0.4 mg/dL (0.2-1); CALCIUM 9.4 mg/dL (8.5-10.1); CREATININE 1.7 mg/dL (0.55-1.3); POTASSIUM 4.4 mmol/L (3.5-5.1); TOT PROT 7.7 g/dl (6.4-8.2)
--- NOTE | 2019-05-20 11:32 | PDOC ---
Attending Attestation - Resident Resident Name: Aydin Alatorre - ED Attending Attestation I have performed the following: I have examined & evaluated the patient, The case was reviewed & discussed with the resident, I agree w/resident's findings & plan, Exceptions are as noted - HPI HPI: 05/20/19 11:24 83yo M hx lung ca in remission on keytruda, HTN, BPH presents to the ED with rash. Pt reports the rash began after taking a single dose of levaquin 2 days ago for a right foot cellulitis diagnosed by his PMD Dr. Sal. He notes very itchy red patches that appeared on his arms b/l and a few to his inner thighs. Pt's son and main loop puller states the patient has been scratching them extensively to the point that the skin has "peeled off." Pt's son also reports his lips became swollen a few hours after the levaquin dose but this subsided since then with no intervention. Pt and son report the infection he was taking abx for was btwn his R 1st and 2nd toes and has improved despite only taking 1 dose of levaquin. Denies fevers, chills, headache, dizziness, CP, SOB, throat closing, tongue swelling, abd pain, N/V/D, LE edema. - Physicial Exam PE: 05/20/19 11:32 GENERAL: Awake, alert, and fully oriented, in no acute distress HEAD: No signs of trauma EYES: PERRLA, EOMI, sclera anicteric, conjunctiva clear ENT: Oropharynx clear without exudates. Moist mucosa. No tongue, lip, uvular, or tonsillar edema or erythema. NECK: Normal ROM, supple, no lymphadenopathy, JVD, or masses LUNGS: Breath sounds equal, clear to auscultation bilaterally. No wheezes, and no crackles HEART: Regular rate and rhythm, normal S1 and S2, no murmurs, rubs or gallops ABDOMEN: Soft, nontender, normoactive bowel sounds. No guarding, no rebound. No masses EXTREMITIES: Normal range of motion, no edema. No clubbing or cyanosis. No cords, erythema, or tenderness NEUROLOGICAL: Normal speech, cranial nerves intact, equal strength and sensation b/l SKIN: b/l arms, each with 2-3 indurated, erythematous, excoriated tender patches. Two more lesions noted to medial L thigh, not as indurated or excoriated. +4cm area erythema and induration btwn R foot first and second digits. - Medical Decision Making 05/20/19 11:39 83yo M presents to the ED with rash after taking levaquin for cellulitis to his foot. Rash consistent with hives, however some hives appear superinfected likely 2/2 scratching Labs wnl, no WBC No systemic signs of infection. HR on arrival was elevated to 116, but came down to 88 w/o intervention shortly after arrival Case discussed with Dr. Sal, abx will be switched from levaquin to clindamycin TID Pt has appointment with Dr. Sal on Tuesday 05/22 for f/u Discussed plan with pt and his son, pt to retrun to the ED sooner if he develops fevers, vomiting, weakness or any new/concerning symptoms I discussed the physical exam findings, ancillary test results and final diagnoses with the patient. I answered all of the patient's questions. The patient was satisfied with the care received and felt comfortable with the discharge plan and treatment plan. The patient will call their primary care physician within 24 hours to arrange follow-up and will return to the Emergency Department with any new, persistent or worsening symptoms.
[2019-05-20 11:40] VITALS: BP 167/83; PULSE 87; TEMP 97.9
== END 2019-05-20 12:05 | disposition home or self-care (01) ==
LOC: JER 08:23
PROC: 3E033GC Introduction of Other Therapeutic Substance into Peripheral Vein, Percutaneous Approach (ICD-10-PCS; principal; 2019-05-20)
DX: L50.0 Allergic urticaria (principal); T36.8X5A Adverse effect of other systemic antibiotics, initial encounter; L03.115 Cellulitis of right lower limb; Y92.018 Other place in single-family (private) house as the place of occurrence of the external cause
CPT/HCPCS: 36415; 80053; 85025; 87040; 96374; 99283-25